=== PATIENT | male | born 1955 | race Caucasian/White ===

== ENCOUNTER 2017-08-10 16:56 | Inpatient (IN) | payer BC ==
[~2017-08-10] VITALS: Ht 180.3 cm; Wt 119.9 kg
[2017-08-10] MEDS ORDERED: ASPIRIN 81 MG TABLET CHEW ONE (17:18)
[2017-08-10 17:37] LABS: BASOPHILS # (AUTO) 0.04 x10^3/uL (0-0.1); BASOPHILS % (AUTO) 0 % (0-1); EOSINOPHILS # (AUTO) 0.23 x10^3/uL (0-0.4); EOSINOPHILS % (AUTO) 3 % (1-7); LYMPHOCYTES # (AUTO) 2.44 x10^3/uL (1-3.4); LYMPHOCYTES % (AUTO) 27 % (22-44); MD NO; MEAN CORPUSCULAR HEMOGLOBIN 29.7 pg (27.5-34.5); MEAN CORPUSCULAR VOLUME 90.1 fL (81-97); MEAN PLATELET VOLUME 8.9 fL (7.4-10.4); MONOCYTES # (AUTO) 0.67 x10^3/uL (0.2-0.8); MONOCYTES % (AUTO) 8 % (2-9); NEUTROPHILS # (AUTO) 5.62 x10^3/uL (1.8-6.8); NEUTROPHILS % (AUTO) 63 % (42-75); PLATELET COUNT 236 x10^3/uL (130-400); RED BLOOD COUNT 4.71 x10^6/uL (4.38-5.82); RED CELL DISTRIBUTION WIDTH 13.7 % (9.4-14.8)
[2017-08-10] MEDS ORDERED: ONDANSETRON 2MG/ML, 2ML ONE (17:39)
[2017-08-10] MEDS ORDERED: MORPHINE SULFATE 4 MG/ML, 1ML ONE (17:39)
[2017-08-10 17:44] LABS: ALANINE AMINOTRANSFERASE 36 U/L (12-78); ALBUMIN 3.6 g/dL (3.4-5.0); ANION GAP 6 mmol/L (5-15); CALCIUM 8.6 mg/dL (8.5-10.1); CHLORIDE 106 mmol/L (98-107); CREATININE 1.59 mg/dL (0.7-1.3)
[2017-08-10 17:49] LABS: ALKALINE PHOSPHATASE 114 U/L (45-117); BILIRUBIN,TOTAL 0.8 mg/dL (0.2-1.0); TOTAL PROTEIN 7.8 g/dL (6.4-8.2); TROPONIN I < 0.015 ng/mL (0.000-0.045)
[2017-08-10] MEDS ORDERED: NITROGLYCERIN SINGLE TAB 0.4 MG SL ONE (17:52)
[2017-08-10] MEDS: NITROGLYCERIN SINGLE TAB 0.4 MG SL PRN ×3 (17:54→18:06)
[2017-08-10] MEDS: ONDANSETRON 2MG/ML, 2ML IVPush ONE ×2 (17:54→18:20)
[2017-08-10] MEDS: MORPHINE SULFATE 4 MG/ML, 1ML IVPush PRN ×2 (17:55→18:20)
[2017-08-10] MEDS ORDERED: ASPIRIN 81 MG TABLET CHEW PO ONE (18:00)
[2017-08-10] MEDS ORDERED: SODIUM CHLORIDE FLUSH 10ML SYR IVF ONE (18:30)
[2017-08-10] MEDS ORDERED: MAALOX/HYOSCYAMINE/LIDOCAINE 45 ML BTL ONE (18:33)
[2017-08-10] MEDS ORDERED: UNK BP MEDICATION PO (18:58)
[2017-08-10] MEDS ORDERED: ALLO300T PO (18:58)
[2017-08-10] MEDS ORDERED: ASPI325T17 PO (18:58)
[2017-08-10] MEDS ORDERED: [UNRECOGNIZED DRUG - REMARK] PO (18:58)
[2017-08-10] MEDS ORDERED: ROSU5TAB PO (18:58)
[2017-08-10] MEDS ORDERED: LEVO175T2 PO (18:58)
[2017-08-10] MEDS ORDERED: MAALOX/HYOSCYAMINE/LIDOCAINE 45 ML BTL PO ONE (19:30)
[2017-08-10 20:25] VITALS: BP 147/79
[2017-08-10] MEDS ORDERED: SODIUM CHLORIDE 0.9% 1,000 ML IV SCH (21:57)
[2017-08-10] MEDS ORDERED: KETOROLAC 30 MG/1 ML IVPush PRN (22:00)
[2017-08-10] MEDS ORDERED: ONDANSETRON 2MG/ML, 2ML IVPush PRN (22:00)
[2017-08-10] MEDS ORDERED: hydrALAzine 20 MG/ML, 1ML IVPush PRN (22:00)
[2017-08-10] MEDS ORDERED: KETOROLAC 30 MG/1 ML IVPush ONE (22:30)
[2017-08-10] MEDS: FAMOTIDINE 20 MG TABLET PO SCH (22:36)
[2017-08-10] MEDS: ATORVASTATIN 10 MG TABLET PO SCH (22:36)
[2017-08-10 23:36] LABS: TROPONIN I < 0.015 ng/mL (0.000-0.045)
[2017-08-11 00:22] VITALS: BP 155/79
[2017-08-11 03:47] VITALS: BP 127/77
[2017-08-11 06:08] LABS: CHOL/HDL RATIO 3.6; CHOLESTEROL, TOTAL 128 mg/dL (140-239); HDL CHOL % 28 % (26-37); HDL CHOLESTEROL (DIRECT) 36 mg/dL (40-60); LDL CHOLESTEROL,CALCULATED 77 mg/dL (54-169); LDL/HDL RATIO 2.1 (0.5-3.0); TRIGLYCERIDES 75 mg/dL (50-200); TROPONIN I < 0.015 ng/mL (0.000-0.045); VLDL CHOLESTEROL 15 mg/dL (0-25)
[2017-08-11] MEDS: LEVOTHYROXINE 175 MCG TABLET PO SCH (06:12)
[2017-08-11] MEDS: ACETAMINOPHEN 325 MG TABLET PO PRN ×2 (06:14→19:41)
[2017-08-11] MEDS ORDERED: KETOROLAC 30 MG/1 ML IVPush ONE (07:00)
[2017-08-11 07:23] LABS: ANION GAP 7 mmol/L (5-15); CALCIUM 8.2 mg/dL (8.5-10.1); CHLORIDE 109 mmol/L (98-107); CREATININE 1.51 mg/dL (0.7-1.3)
[2017-08-11 08:00] VITALS: BP 142/85
[2017-08-11] MEDS ORDERED: REGADENOSON 0.4 MG/5 ML SYRINGE ONE (08:08)
[2017-08-11] MEDS: ALLOPURINOL 100 MG TABLET PO SCH (08:19)
[2017-08-11] MEDS: ASPIRIN 81 MG TABLET CHEW PO SCH (08:19)
[2017-08-11] MEDS: FAMOTIDINE 20 MG TABLET PO SCH ×2 (08:19→19:41)
[2017-08-11] MEDS ORDERED: FLU VACC QS2017-18 (36MOS+) UP/PF 0.5 ML IM-VACC ONE (12:30)
[2017-08-11 14:00] VITALS: BP 143/79
[2017-08-11] MEDS ORDERED: HEPARIN 5,000 UNITS/ML, 1ML IV ONE (15:00)
[2017-08-11] MEDS: HEPARIN 25,000 UNITS/500ML PMX 500 ML IV PRN (15:37)
[2017-08-11] MEDS: ATORVASTATIN 10 MG TABLET PO SCH (19:41)
[2017-08-11 20:00] VITALS: BP 147/89
[2017-08-11] MEDS ORDERED: OMNIPAQUE 350 MG/ML, 100ML BOTTLE ONE (20:00)
[2017-08-11] MEDS: HEPARIN 5,000 UNITS/ML, 1ML IV PRN (23:34)
[2017-08-12 00:55] VITALS: BP 119/75
[2017-08-12] MEDS ORDERED: LEVOTHYROXINE 100 MCG TABLET ONE (05:39)
[2017-08-12] MEDS ORDERED: LEVOTHYROXINE 75 MCG TABLET ONE (05:39)
[2017-08-12 05:42] LABS: CHLORIDE 109 mmol/L (98-107)
[2017-08-12 05:50] LABS: ANION GAP 9 mmol/L (5-15); CALCIUM 8.3 mg/dL (8.5-10.1); CREATININE 1.39 mg/dL (0.7-1.3)
[2017-08-12] MEDS: LEVOTHYROXINE 175 MCG TABLET PO SCH (05:59)
[2017-08-12 07:27] VITALS: BP 115/72
[2017-08-12] MEDS: ASPIRIN 81 MG TABLET CHEW PO SCH (09:54)
[2017-08-12] MEDS: FAMOTIDINE 20 MG TABLET PO SCH ×2 (09:54→20:56)
[2017-08-12] MEDS: ALLOPURINOL 100 MG TABLET PO SCH (09:54)
[2017-08-12] MEDS: HEPARIN 25,000 UNITS/500ML PMX 500 ML IV PRN (11:54)
[2017-08-12] MEDS: HEPARIN 5,000 UNITS/ML, 1ML IV PRN (12:59)
[2017-08-12 13:58] VITALS: BP 113/68
[2017-08-12] MEDS: ACETAMINOPHEN 325 MG TABLET PO PRN (16:28)
[2017-08-12 19:54] VITALS: BP 143/84
[2017-08-12] MEDS: ATORVASTATIN 10 MG TABLET PO SCH (20:55)
[2017-08-13 01:36] VITALS: BP 119/76
[2017-08-13] MEDS ORDERED: LEVOTHYROXINE 75 MCG TABLET ONE (04:04)
[2017-08-13] MEDS ORDERED: LEVOTHYROXINE 100 MCG TABLET ONE (04:04)
[2017-08-13] MEDS: LEVOTHYROXINE 175 MCG TABLET PO SCH (04:06)
[2017-08-13] MEDS: HEPARIN 25,000 UNITS/500ML PMX 500 ML IV PRN (04:10)
[2017-08-13 06:49] VITALS: BP 135/81
[2017-08-13] MEDS: ASPIRIN 81 MG TABLET CHEW PO SCH (09:02)
[2017-08-13] MEDS: FAMOTIDINE 20 MG TABLET PO SCH (09:02)
[2017-08-13] MEDS: ALLOPURINOL 100 MG TABLET PO SCH (09:02)
[2017-08-13] MEDS: ACETAMINOPHEN 325 MG TABLET PO PRN (09:03)
[2017-08-13 12:34] VITALS: BP 138/89
[2017-08-13] MEDS ORDERED: APIX5TAB PO (13:27)
[2017-08-13] MEDS ORDERED: APIXABAN 5 MG TABLET ONE (17:41)
[2017-08-13] MEDS ORDERED: APIXABAN 5 MG TABLET PO SCH (21:00)
== END 2017-08-13 18:03 | disposition home or self-care (01) | DRG 176 ==
LOC: ED 17:55 → EDIP 17:56 → OBSVTOIN 17:56 → ED 18:13 → 5SO 20:32
PROVIDERS: ADMIT Hospitalist; ATTEND Hospitalist
DX: I26.99 Other pulmonary embolism without acute cor pulmonale (principal); E78.00 Pure hypercholesterolemia, unspecified; E78.5 Hyperlipidemia, unspecified; I12.9 Hypertensive chronic kidney disease with stage 1 through stage 4 chronic kidney disease, or unspecified chronic kidney disease; K21.9 Gastro-esophageal reflux disease without esophagitis; N18.2 Chronic kidney disease, stage 2 (mild); R79.1 Abnormal coagulation profile
CPT/HCPCS: 36415; 71045; 71275; 78452; 80048; 80053; 80061; 83690; 83735; 84484; 85025; 85379; 85520; 90686; 93005; 93017; 93306; 93970; J1644; J1885; J2405; J2785; Q9967; A9502; C9898; J7030

== ENCOUNTER → 2018-01-05 | Outpatient (CLI) | payer BC ==
[~2018-01-05] MED LIST: ALLO300T PO; APIX5TAB PO; ASPI325T17 PO; LEVO175T2 PO; OMNIPAQUE 350 MG/ML, 100ML BOTTLE ONE; ROSU5TAB PO; UNK BP MEDICATION PO; [UNRECOGNIZED DRUG - REMARK] PO
== END | disposition home or self-care (01) ==
LOC: CFH 13:59
PROVIDERS: ATTEND Internal Medicine Hematology & Oncology
DX: J98.11 Atelectasis (principal); R91.8 Other nonspecific abnormal finding of lung field; R06.00 Dyspnea, unspecified; Z86.711 Personal history of pulmonary embolism
CPT/HCPCS: 71260; Q9967